=== PATIENT | female | born 1965 | race African-American/Black ===

== ENCOUNTER 2017-11-15 23:40 | Emergency (ER) | payer MEDICAID ==
[~2017-11-15] VITALS: Ht 200.7 cm; Wt 110.2 kg
[2017-11-16 00:05] VITALS: Ht 200.7 cm; Wt 110.2 kg
[2017-11-16 00:55] VITALS: BP 121/76
== END 2017-11-16 00:55 | disposition left against medical advice (07) ==
LOC: ED 23:40
DX: Z53.21 Procedure and treatment not carried out due to patient leaving prior to being seen by health care provider (principal)

== ENCOUNTER 2017-11-16 01:23 | Emergency (ER) | payer MEDICAID ==
[~2017-11-16] VITALS: Ht 177.8 cm; Wt 110.7 kg
[2017-11-16 01:27] VITALS: Ht 177.8 cm; Wt 110.7 kg
[2017-11-16 02:48] LABS: BASOPHIL % 0.4 % (0-2); PLATELET COUNT 284 x10^3mcL (130-400); RED CELL DISTRIBUTION WIDTH 13.2 % (11.5-14.5)
[2017-11-16 03:02] LABS: CALCIUM 9.1 mg/dL (8.5-10.1); CARBON DIOXIDE 28.4 mmol/L (21-32); CHLORIDE SERUM 104 mmol/L (98-107); CREATININE SERUM 0.7 mg/dL (0.6-1.0); GFR1 > 60 mL/min; GLUCOSE SERUM 104 mg/dL (74-106); POTASSIUM SERUM 3.4 mmol/L (3.5-5.1); SODIUM SERUM 142 mmol/L (136-145)
[2017-11-16 03:07] LABS: ALBUMIN 3.4 g/dL (3.4-5.0); ALKALINE PHOSPHATASE 92 U/L (46-116); ALT/SGPT 20 U/L (14-59); AST/SGOT 16 U/L (15-37); TOTAL PROTEIN, SERUM 7.8 g/dL (6.4-8.2)
[2017-11-16 05:24] VITALS: BP 125/82
== END 2017-11-16 05:24 | disposition home or self-care (01) ==
LOC: ED 01:23
PROVIDERS: Emergency Medicine
DX: R60.0 Localized edema (principal); J02.9 Acute pharyngitis, unspecified; Z88.5 Allergy status to narcotic agent; Z90.710 Acquired absence of both cervix and uterus; G56.00 Carpal tunnel syndrome, unspecified upper limb
CPT/HCPCS: 36415; 83880